=== PATIENT | male | born 1945 | race Caucasian/White ===

== ENCOUNTER 2021-09-20 19:59 | Inpatient (IN) ==
[2021-09-21] MEDS ORDERED: *HR* Enoxaparin 30 MG/0.3 ML SYRINGE SQ SCH (07:00)
[2021-09-21 07:10] LABS: Basophils % 0.6 %; Eosinophils # 0.1 K/mcL (0.0-0.6); Eosinophils % 1.3 %; Hematocrit 27.2 % (37.5-50.1); Hemoglobin 8.3 g/dL (12.9-16.9); Immature Granulocytes % 0.7 % (0-4); Lymphocytes # 0.7 K/mcL (0.6-4.6); Lymphocytes % 12.5 %; Mean Corpuscular HGB Conc 30.5 g/dL (31.6-35.5); Mean Corpuscular Volume 88.6 fL (83.0-100.0); Mean Platelet Volume 9.1 fL (9.4-12.4); Monocytes # 0.5 K/mcL (0.0-1.3); Monocytes % 10.1 %; Platelet Count 181 K/mcL (140-400); Red Blood Count 3.07 M/mcL (4.19-5.50); Red Cell Distribution Width 17.1 % (11.5-14.5); Segmented Neutrophils % 74.8 %; White Blood Count 5.3 K/mcL (4.3-11.1)
[2021-09-21 07:25] LABS: Calcium 8.4 mg/dL (8.6-10.3); Potassium 5.8 mEq/L (3.5-5.1)
[2021-09-21] MEDS: Renal Vitamin 1 CAP CAPSULE PO SCH (08:46)
[2021-09-21] MEDS: hydrALAZINE 25 MG TABLET PO SCH ×3 (08:48→20:47)
[2021-09-21] MEDS ORDERED: VANCOMYCIN IVPB SCH (09:00)
[2021-09-21] MEDS ORDERED: [UNRECOGNIZED DRUG - OTHER] IVPB SCH (09:00)
[2021-09-21] MEDS ORDERED: D5% in Water 1,000 ML IVC PRN ×2 (09:06→13:27)
[2021-09-21] MEDS ORDERED: *HR* Dextrose 50 % in Water (Syg) 50 ML SYRINGE IVP PRN ×2 (09:06→13:27)
[2021-09-21] MEDS ORDERED: Dextrose Gel 15 GM/37.5 ML TUBE PO PRN ×4 (09:06→13:27)
[2021-09-21] MEDS ORDERED: Insulin LISPRO 300 UNITS/3 ML VIAL SUBQ SCH ×2 (11:30→21:00)
[2021-09-21] MEDS: Bicalutamide 50 MG TABLET PO SCH (11:32)
[2021-09-21] MEDS: Cefepime HCl 2,000 MG in Water for inj. (sterile) 20 ML IVPB SCH (17:46)
[2021-09-21] MEDS: amLODIPine 5 MG TABLET PO SCH (17:47)
[2021-09-21] MEDS: Insulin LISPRO 300 UNITS/3 ML VIAL SUBQ SCH ×2 (17:47→20:45)
[2021-09-21] MEDS: *HR* HYDROcodone/Acet 10/325 mg TABLET PO PRN (20:47)
[2021-09-21] MEDS: Insulin DETEMIR 100 UNIT/ML X5UNITS SUBQ SCH (20:47)
[2021-09-22] MEDS: *HR* HYDROcodone/Acet 10/325 mg TABLET PO PRN (05:23)
[2021-09-22] MEDS: Insulin LISPRO 300 UNITS/3 ML VIAL SUBQ SCH ×4 (07:43→20:08)
[2021-09-22] MEDS ORDERED: DiphenhydraMINE CREAM 28.4 GM TUBE TP PRN (09:19)
[2021-09-22] MEDS: Renal Vitamin 1 CAP CAPSULE PO SCH (09:26)
[2021-09-22] MEDS: hydrALAZINE 25 MG TABLET PO SCH ×3 (09:28→20:29)
[2021-09-22] MEDS: amLODIPine 5 MG TABLET PO SCH (09:28)
[2021-09-22] MEDS: Bicalutamide 50 MG TABLET PO SCH (09:32)
[2021-09-22] MEDS: Acetaminophen 325 MG TABLET PO PRN (13:34)
[2021-09-22] MEDS: Insulin DETEMIR 100 UNIT/ML X5UNITS SUBQ SCH (20:26)
[2021-09-22] MEDS: *HR* HYDROcodone/Acet 5/325 mg TABLET PO PRN (20:26)
[2021-09-23] MEDS ORDERED: *HR* LORazepam 2 MG/ML VIAL IVP ONE (01:20)
[2021-09-23] MEDS: Melatonin 3 MG TABLET PO SCH ×2 (01:35→19:53)
[2021-09-23] MEDS: *HR* HYDROcodone/Acet 5/325 mg TABLET PO PRN ×2 (06:39→18:35)
[2021-09-23] MEDS: hydrALAZINE 25 MG TABLET PO SCH ×3 (07:34→19:53)
[2021-09-23] MEDS: amLODIPine 5 MG TABLET PO SCH (07:35)
[2021-09-23] MEDS: Insulin LISPRO 300 UNITS/3 ML VIAL SUBQ SCH ×4 (08:00→20:41)
[2021-09-23] MEDS: Bicalutamide 50 MG TABLET PO SCH (08:48)
[2021-09-23] MEDS: Renal Vitamin 1 CAP CAPSULE PO SCH (08:48)
[2021-09-23] MEDS ORDERED: amLODIPine 5 MG TABLET PO SCH (09:54)
[2021-09-23 15:45] LABS: Calcium 8.9 mg/dL (8.6-10.3); Potassium 5.9 mEq/L (3.5-5.1)
[2021-09-23] MEDS ORDERED: *HR* Dextrose 50 % in Water (Syg) 50 ML SYRINGE IVP ONE (16:03)
[2021-09-23] MEDS ORDERED: Insulin Human Regular 10 UNIT in 0.9 % Sodium Chloride 10 ML IV ONE (16:04)
[2021-09-23] MEDS: Acetaminophen 325 MG TABLET PO PRN (16:38)
[2021-09-23] MEDS: *HR* LORazepam 0.5 MG TABLET PO PRN (19:53)
[2021-09-23] MEDS: Insulin DETEMIR 100 UNIT/ML X5UNITS SUBQ SCH (22:04)
[2021-09-23] MEDS ORDERED: Haloperidol Lactate 5 MG/ML VIAL IVP ONE (22:13)
[2021-09-24] MEDS ORDERED: Ondansetron ODT 4 MG TAB.RAPDIS SL PRN (02:15)
[2021-09-24] MEDS ORDERED: *HR* HYDROmorphone (PF) 1 MG/ML SYRINGE IVP ONE (02:15)
[2021-09-24] MEDS ORDERED: *HR* Enoxaparin 40 MG/0.4 ML SYRINGE SQ SCH (06:00)
[2021-09-24 06:45] LABS: Basophils % 0.5 %; Eosinophils # 0.1 K/mcL (0.0-0.6); Eosinophils % 1.1 %; Hematocrit 27.9 % (37.5-50.1); Hemoglobin 8.5 g/dL (12.9-16.9); Immature Granulocytes % 0.4 % (0-4); Lymphocytes # 0.7 K/mcL (0.6-4.6); Lymphocytes % 8.5 %; Mean Corpuscular HGB Conc 30.5 g/dL (31.6-35.5); Mean Corpuscular Hemoglobin 27.6 pg (28.0-33.3); Mean Corpuscular Volume 90.6 fL (83.0-100.0); Mean Platelet Volume 9.5 fL (9.4-12.4); Monocytes # 0.7 K/mcL (0.0-1.3); Monocytes % 8.5 %; Neutrophils # 6.4 K/mcL (1.6-8.9); Platelet Count 211 K/mcL (140-400); Red Blood Count 3.08 M/mcL (4.19-5.50); Red Cell Distribution Width 17.5 % (11.5-14.5); White Blood Count 7.9 K/mcL (4.3-11.1)
[2021-09-24 07:07] LABS: Calcium 8.7 mg/dL (8.6-10.3); Potassium 6.3 mEq/L (3.5-5.1)
[2021-09-24] MEDS: Insulin LISPRO 300 UNITS/3 ML VIAL SUBQ SCH ×4 (08:36→20:44)
[2021-09-24] MEDS: hydrALAZINE 25 MG TABLET PO SCH ×3 (08:36→20:43)
[2021-09-24] MEDS: Renal Vitamin 1 CAP CAPSULE PO SCH (08:38)
[2021-09-24] MEDS: *HR* LORazepam 0.5 MG TABLET PO PRN (08:38)
[2021-09-24] MEDS: *HR* HYDROcodone/Acet 5/325 mg TABLET PO PRN (08:38)
[2021-09-24] MEDS: Bicalutamide 50 MG TABLET PO SCH (08:38)
[2021-09-24] MEDS: Insulin DETEMIR 100 UNIT/ML X5UNITS SUBQ SCH ×2 (08:39→20:44)
[2021-09-24] MEDS: SODIUM ZIRCONIUM CYCLOSILICATE 5 GM POWD.PACK PO SCH (10:04)
[2021-09-24] MEDS ORDERED: Ergocalciferol (VIT D2) 50,000 UNIT (1.25MG) CAP PO SCH (17:00)
[2021-09-24] MEDS ORDERED: *HR* HYDROcodone/Acet 10/325 mg TABLET PO ONE (19:52)
[2021-09-24] MEDS ORDERED: Morphine Sulfate 2 MG/ML SYRINGE IVP ONE (20:37)
[2021-09-24] MEDS: Melatonin 3 MG TABLET PO SCH (20:44)
[2021-09-24] MEDS: Cefepime HCl 2,000 MG in Water for inj. (sterile) 20 ML IVPB SCH (21:43)
[2021-09-24 21:52] VITALS: PULSE 74
[2021-09-24] MEDS ORDERED: Albumin 25% 25gram/100mL 25 GM/100 ML IV.SOLN IVPB ONE (22:26)
[2021-09-24 23:06] LABS: Basophils # 0.1 K/mcL (0.0-0.2); Basophils % 0.7 %; Eosinophils % 0.4 %; Hematocrit 26.8 % (37.5-50.1); Hemoglobin 8.2 g/dL (12.9-16.9); Immature Granulocytes % 0.4 % (0-4); Lymphocytes # 0.6 K/mcL (0.6-4.6); Lymphocytes % 7.8 %; Mean Corpuscular HGB Conc 30.6 g/dL (31.6-35.5); Mean Corpuscular Hemoglobin 27.7 pg (28.0-33.3); Mean Corpuscular Volume 90.5 fL (83.0-100.0); Mean Platelet Volume 9.3 fL (9.4-12.4); Monocytes # 0.8 K/mcL (0.0-1.3); Monocytes % 10.3 %; Neutrophils # 6.1 K/mcL (1.6-8.9); Platelet Count 222 K/mcL (140-400); Red Blood Count 2.96 M/mcL (4.19-5.50); Red Cell Distribution Width 17.8 % (11.5-14.5); Segmented Neutrophils % 80.4 %; White Blood Count 7.6 K/mcL (4.3-11.1)
[2021-09-24] MEDS ORDERED: Gadolinium Contrast Agent (WT Based) IV PRN (23:30)
[2021-09-24] MEDS ORDERED: Calcium Gluconate 1gm/50mL 1 GM/50 ML BAG IVPB ONE (23:31)
[2021-09-24 23:41] LABS: Albumin 3.1 g/dL (3.5-5.7); Albumin/Globulin Ratio 0.8 (1.1-2.2); Bilirubin,Total 0.8 mg/dL (0.3-1.0); Calcium 8.8 mg/dL (8.6-10.3); Globulin 3.7 g/dL (2.4-3.5); Potassium 5.3 mEq/L (3.5-5.1); Total Protein 6.8 g/dL (6.4-8.9)
[2021-09-25] MEDS ORDERED: Calcium Gluconate 1gm/50mL 1 GM/50 ML BAG IVPB ONE (06:30)
[2021-09-25] MEDS: Insulin LISPRO 300 UNITS/3 ML VIAL SUBQ SCH ×3 (07:11→16:30)
[2021-09-25] MEDS ORDERED: *HR* HYDROcodone/Acet 7.5/325 mg TABLET PO PRN (07:46)
[2021-09-25 07:49] LABS: Hematocrit 25.3 % (37.5-50.1); Hemoglobin 7.7 g/dL (12.9-16.9); Mean Corpuscular HGB Conc 30.4 g/dL (31.6-35.5); Mean Corpuscular Hemoglobin 27.5 pg (28.0-33.3); Mean Corpuscular Volume 90.4 fL (83.0-100.0); Mean Platelet Volume 9.4 fL (9.4-12.4); Platelet Count 202 K/mcL (140-400); Red Cell Distribution Width 17.9 % (11.5-14.5); White Blood Count 6.4 K/mcL (4.3-11.1)
[2021-09-25] MEDS: Bicalutamide 50 MG TABLET PO SCH (07:52)
[2021-09-25] MEDS: Insulin DETEMIR 100 UNIT/ML X5UNITS SUBQ SCH (07:52)
[2021-09-25] MEDS: Renal Vitamin 1 CAP CAPSULE PO SCH (07:53)
[2021-09-25] MEDS: SODIUM ZIRCONIUM CYCLOSILICATE 5 GM POWD.PACK PO SCH (07:53)
[2021-09-25] MEDS: Morphine Sulfate 2 MG/ML SYRINGE IVP PRN ×2 (08:06→15:59)
[2021-09-25 08:20] LABS: Calcium 8.7 mg/dL (8.6-10.3); Phosphorous 3.6 mg/dL (2.7-4.5); Potassium 5.5 mEq/L (3.5-5.1)
[2021-09-25 15:48] VITALS: BP 106/48; RESP 16; TEMP 98.7; O2SAT 93
[2021-09-25] MEDS ORDERED: Atropine 1% Opth Drops 100 DROP/5 ML BOTTLE SL PRN (16:04)
== END 2021-09-25 17:48 | disposition hospice, inpatient (51) | DRG 638 ==
LOC: INPPIK 21:31
PROVIDERS: ADMIT Family Medicine; ATTEND Family Medicine

== ENCOUNTER 2021-09-25 16:05 | Inpatient (IN) ==
[2021-09-25] MEDS: GlipiZIDE 5 MG TABLET PO SCH (20:01)
[2021-09-25] MEDS: hydrALAZINE 25 MG TABLET PO SCH (20:02)
[2021-09-25] MEDS: *HR* LORazepam Oral Conc 2 MG/ML PO PRN (22:02)
[2021-09-26] MEDS: Morphine Sulfate 2 MG/ML SYRINGE IVP PRN ×11 (00:11→18:10)
[2021-09-26] MEDS: hydrALAZINE 25 MG TABLET PO SCH ×3 (08:09→20:29)
[2021-09-26] MEDS: GlipiZIDE 5 MG TABLET PO SCH ×2 (08:09→20:28)
[2021-09-26] MEDS ORDERED: Renal Vitamin 1 CAP CAPSULE PO SCH (09:00)
[2021-09-26] MEDS ORDERED: Bicalutamide 50 MG TABLET PO SCH (09:00)
[2021-09-26] MEDS: *HR* LORazepam Oral Conc 2 MG/ML PO PRN ×3 (10:15→21:58)
[2021-09-26] MEDS: Atropine Sulfate 1% 40 DROP/2 ML BOTTLE SL PRN ×4 (10:17→21:59)
[2021-09-26 20:22] VITALS: BP 107/35; PULSE 68; RESP 12; TEMP 97.4; O2SAT 89
[2021-09-27] MEDS: Morphine Sulfate 2 MG/ML SYRINGE IVP PRN ×2 (00:48→04:29)
[2021-09-27] MEDS: Atropine Sulfate 1% 40 DROP/2 ML BOTTLE SL PRN ×2 (00:50→04:30)
[2021-09-27] MEDS: *HR* LORazepam Oral Conc 2 MG/ML PO PRN (03:58)
== END 2021-09-27 11:15 | disposition expired | DRG 374 ==
LOC: INPPIK 17:56
PROVIDERS: ADMIT Family Medicine; ATTEND Family Medicine